=== PATIENT | male | born 1960 | race African-American/Black ===

== ENCOUNTER → 2017-01-15 | Outpatient (CLI) | payer OTHER ==
[~2017-01-15] MED LIST: ASPI81TA11 PO; BLOOD GLUCOSE T1 TES; DEPA500T3 PO; DILA30CA PO; GLUC10TA3 PO; LEVE500 PO; LEVEMIR SQ; PHEN50CH4 CHEW; PRAV40TA PO
[2017-01-15 16:08] LABS: ALKALINE PHOSPHATASE 96 U/L (45-117); ALT (GPT) 20 U/L (12-78); ANION GAP 7 MEQ/L (5-15); AST (GOT) 10 U/L (15-37); BICARBONATE 26.7 MEQ/L (21.0-32.0); BLOOD UREA NITROGEN 14 MG/DL (7-18); CHLORIDE 103 MEQ/L (98-107); GLOMERULAR FILTRATION RATE 92 ML/MIN (>89); GLUCOSE,FASTING 352 MG/DL (74-99); HDL CHOLESTEROL 52.1 MG/DL (40.0-60.0); LDL CHOLESTEROL 111 MG/DL (0-99); SODIUM (NA) 137 MEQ/L (136-145); TOTAL BILIRUBIN ADULT 0.2 MG/DL (0.2-1.0)
[2017-01-15 22:25] LABS: HEMOGLOBIN A1a 1.2 %; HEMOGLOBIN A1b 1.2 %; HEMOGLOBIN Ao 73.3 %; HEMOGLOBIN F 2.1 %; HEMOGLOBIN LA1C 3.9 %; HEMOGLOBIN P3 5.5 %
== END ==
LOC: CLAB 15:10
PROVIDERS: ATTEND Family Medicine
DX: E11.9 Type 2 diabetes mellitus without complications (principal); R56.9 Unspecified convulsions; Z86.73 Personal history of transient ischemic attack (TIA), and cerebral infarction without residual deficits; Z72.0 Tobacco use
CPT/HCPCS: 36415; 80053; 80061; 83036; 84443

== ENCOUNTER 2017-10-23 16:27 | Emergency (ER) | payer SELFPAY ==
[~2017-10-23] VITALS: Ht 170.2 cm; Wt 60.0 kg
[~2017-10-23 16:27] MED LIST changes: -ASPI81TA11 PO; +ASPI81TA23 PO; -PHEN50CH4 CHEW
[2017-10-23 16:30] VITALS: BP 123/80; PULSE 70; RESP 18; TEMP 98.2; O2SAT 99
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
[2017-10-23] MEDS ORDERED: CEPHALEXIN MONOHYDRATE 500 MG CAP PO ONE (19:30)
[2017-10-23] MEDS ORDERED: TETANUS/DIPHTHERIA TOXOID ADULT 0.5 ML VIAL IM ONE (19:30)
[2017-10-23] MEDS ORDERED: LIDOCAINE HCL 1% 30 ML VIAL INFIL ONE (19:30)
[2017-10-23] MEDS ORDERED: LIDOCAINE HCL 1% PF 30 ML VIAL INFIL ONE (19:45)
[2017-10-23] MEDS ORDERED: BACT800T5 PO (20:23)
[2017-10-23] MEDS ORDERED: BACIOIN6 EACH EYE (20:23)
--- NOTE | 2017-10-23 20:53 | RADRPT ---
EXAM DATE/TIME: 10/23/2017 19:39 [facility] COMPARISON: No previous studies available for comparison. INDICATIONS : Laceration to mid tibia. MEDICAL HISTORY : None. SURGICAL HISTORY : None. ENCOUNTER: Initial ACUITY: 1 day PAIN SCORE: 7/10 LOCATION: Right lateral FINDINGS: Two view examination of the right tibia demonstrates no evidence of fracture or dislocation. Bony mi neralization is normal. The soft tissue structures are intact. CONCLUSION: No acute disease. Yonas Darling MD on October 23, 2017 at 20:49 Board Certified Radiologist. This report was verified electronically.
[2017-10-24] MEDS ORDERED: BACI500O9 TOPICAL (11:53)
--- NOTE | 2017-10-24 11:53 | PD ---
Data Data Last Documented VS Vital Signs Date Time Temp Pulse Resp B/P (MAP) Pulse Ox O2 Delivery O2 Flow Rate FiO2 10/23/17 20:21 10/23/17 16:30 98.2 70 18 99 Room Air Orders Orders Tetanus/Diphtheria Tox Adult (Tetanus/Di (10/23/17 19:30) Cephalexin (Keflex) (10/23/17 19:30) Lidocaine 1% Inj (Xylocaine 1% Inj) (10/23/17 19:30) Tibia/Fibula (Ap/Lat) (10/23/17 ) Lidocaine Pf 1% Inj (Xylocaine-Mpf 1% In (10/23/17 19:45) Ed Discharge Order (10/23/17 20:24) MDM Supervised Visit with AYE: No Narrative Course Patient was accidentally given ophthalmic ointment instead of topical ointment. New prescription was written. Diagnosis Primary Impression: Leg laceration Referrals: Primary Care Physician Patient Instructions: General Instructions, Sulfamethoxazole/Trimethoprim (By mouth) Departure Forms: Tests/Procedures Additional Instruction: Please return to the ER if condition worsens or any other new concerns. Otherwise follow up with your primary care next couple days. Keep the wound clean and dry and take the antibiotic prescription as per the direction. Apply the ointment twice a day until the justa come out. The justa need to come out in 10 days. He can come to the emergency room or go to her primary care. Come sooner if the wound starts looking infected. Keep a good control on her diabetes since uncontrolled diabetes delays wound healing and causes infection. Scripts Bacitracin Topical (Bacitracin Topical) 500 Unit/Gm Oint 1 APPLIC TOPICAL BID for Infection, #30 GM 0 Refills Prov: Afshan Thurston MD 10/24/17 Bacitracin Opth Oint (Bacitracin Opth Oint) 500 Unit/Gm Oint 1 APPLIC EACH EYE BID for Infection, #1 TUBE 0 Refills Prov: Iris Barboza MD 10/23/17 Sulfamethoxazole-Trimethoprim (Bactrim DS) 800-160 Mg Tab 1 TAB PO BID for Infection for 10 Days, #20 TAB 0 Refills Prov: Iris Barboza MD 10/23/17 Disposition: 01 DISCHARGE HOME Condition: Stable Afshan Thurston MD Oct 24, 2017 11:53
== END 2017-10-23 20:35 | disposition home or self-care (01) ==
LOC: NEPD 16:27
DX: S81.811A Laceration without foreign body, right lower leg, initial encounter (principal); W29.8XXA Contact with other powered hand tools and household machinery, initial encounter; Y92.009 Unspecified place in unspecified non-institutional (private) residence as the place of occurrence of the external cause; E11.9 Type 2 diabetes mellitus without complications; Z86.73 Personal history of transient ischemic attack (TIA), and cerebral infarction without residual deficits; Z23 Encounter for immunization; Z79.4 Long term (current) use of insulin; Z79.84 Long term (current) use of oral hypoglycemic drugs; Z79.82 Long term (current) use of aspirin
CPT/HCPCS: 12002; 73590; 90471; 90714

== ENCOUNTER 2018-01-23 10:31 | Observation (INO) | payer SELFPAY ==
[~2018-01-23] VITALS: Ht 170.2 cm; Wt 60.0 kg
[~2018-01-23 10:31] MED LIST changes: +BACI500O9 TOPICAL; +BACIOIN6 EACH EYE; +BACT800T5 PO
[2018-01-23 10:35] VITALS: BP 104/67; PULSE 80; RESP 18; TEMP 98.2; O2SAT 98
[2018-01-23] MEDS ORDERED: SODIUM CHLOR 0.9% 1000 ML INJ 1,000 ML IV ONE ×2 (10:46→11:16)
[2018-01-23 10:51] VITALS: O2SAT 94
[2018-01-23] MEDS ORDERED: SODIUM CHLORIDE 0.9% FLUSH 10 ML FLUSH IVF PRN (11:00)
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
[2018-01-23 11:36] LABS: AUTOMATED NEUTROPHIL # 7.2 TH/MM3 (1.8-7.7); BASOPHIL % 0.5 % (0.0-2.0); EOSINOPHIL # 0.1 TH/MM3 (0-0.4); EOSINOPHIL % 1.4 % (0.0-4.0); HEMATOCRIT 45.4 % (39.0-51.0); HEMOGLOBIN 15.4 GM/DL (13.0-17.0); LYMPH % 14.5 % (9.0-44.0); LYMPHOCYTE # 1.4 TH/MM3 (1.0-4.8); MEAN CELL VOLUME 91.4 FL (80.0-100.0); MEAN CORPUSCULAR HGB CONC 33.9 % (32.0-36.0); MEAN PLATELET VOLUME 8.4 FL (7.0-11.0); MONOCYTE # 0.9 TH/MM3 (0-0.9); NEUT % 74.6 % (16.0-70.0); PLATELET COUNT 279 TH/MM3 (150-450); RED BLOOD COUNT 4.97 MIL/MM3 (4.50-5.90); RED CELL DISTRIBUTION WIDTH 13.8 % (11.6-17.2); WHITE BLOOD COUNT 9.7 TH/MM3 (4.0-11.0)
[2018-01-23 11:47] LABS: ALBUMIN 3.5 GM/DL (3.4-5.0); ALKALINE PHOSPHATASE 210 U/L (45-117); ALT (GPT) 31 U/L (12-78); AST (GOT) 18 U/L (15-37); BICARBONATE 23.1 MEQ/L (21.0-32.0); BLOOD UREA NITROGEN 19 MG/DL (7-18); CALCIUM 8.7 MG/DL (8.5-10.1); CHLORIDE 95 MEQ/L (98-107); CREATININE 1.05 MG/DL (0.60-1.30); GLOMERULAR FILTRATION RATE 88 ML/MIN (>89); MAGNESIUM 2.1 MG/DL (1.5-2.5); PHOSPHORUS 3.6 MG/DL (2.5-4.9); SODIUM (NA) 132 MEQ/L (136-145); TOTAL BILIRUBIN ADULT 0.4 MG/DL (0.2-1.0); TOTAL PROTEIN 7.5 GM/DL (6.4-8.2); TROPONIN I LESS THAN 0.02 NG/ML (0.02-0.05)
[2018-01-23 11:51] LABS: GLUCOSE,RANDOM 556 MG/DL (74-106)
[2018-01-23 12:05] LABS: BILIRUBIN, URINE NEG (NEG); BLOOD, URINE NEG (NEG); GLUCOSE,URINE 1000 mg/dL (NEG); KETONE, URINE 40 mg/dL (NEG); MUCUS URINE FEW /lpf (OCC); NITRITE,URINE NEG (NEG); URINE COLOR COLORLESS (YELLW/STRAW); URINE LEUKOCYTE ESTERASE NEG (NEG)
--- NOTE | 2018-01-23 12:30 | RADRPT ---
EXAM DATE/TIME: 01/23/2018 11:49 [facility] COMPARISON: CHEST SINGLE AP, August 03, 2016, 23:29. INDICATIONS : Shortness of breath. MEDICAL HISTORY : Diabetes. SURGICAL HISTORY : None. ENCOUNTER: Initial ACUITY: 1 day PAIN SCORE: 0/10 LOCATION: Bilateral chest FINDINGS: Portable AP view of the chest demonstrates a normal-sized cardiac silhouette. No effusion, consolidat ion, or pneumothorax is visualized. The bones and soft tissues demonstrate no acute abnormality. Lung s are mildly underinflated. CONCLUSION: No acute cardiopulmonary abnormality is identified. Shreyas Hernandez MD on January 23, 2018 at 12:27 Board Certified Radiologist. This report was verified electronically.
[2018-01-23] MEDS ORDERED: ASPIRIN 325 MG TAB PO ONE (13:00)
--- NOTE | 2018-01-23 13:11 | HHI.HP ---
HPI Service Family Medicine Primary Care Physician No Primary Care Physician Admission Diagnosis chest pain, diabetes Diagnoses: International Travel<30 Days: No Contact w/Intl Traveler<30days: No Known Affected Area: No History of Present Illness Patient is a poor historian. Patient is a 57-year-old male with past medical history of diabetes, CVA, and seizures presented to the ED after he was found to have severely elevated blood sugars at home. Cousin was at bedside and provided some of the history. Patient blood sugar was checked today and found to be severely elevated in the 600s. He was advised by his cousin to come into the emergency room for further evaluation. Patient states he has been without any of his medications for the past 6 months. He states he cannot afford the medications. He does not check his blood glucose at home. Denies any active chest pain. States that he has had intermittent left sided nonradiating chest pain throughout the past week. He also reports that he has "not felt well and sluggish" for the past couple of weeks. Patient said he does not have health insurance. He used to see at a program at [facility] but since program closely has not been able to establish care with any PCP. In the ED patient was found to have blood sugar of 556. He received 4 liter bolus of normal saline. Patient also found to have mild ST elevations on EKG and cardiology was consulted. (Alex Bravo MD, R1) Review of Systems Constitutional: COMPLAINS OF: Change in appetite, DENIES: Fever, Chills, Dizziness Endocrine: COMPLAINS OF: Polydipsia, Polyuria Eyes: COMPLAINS OF: Blurred vision, DENIES: Vision loss Ears, nose, mouth, throat: DENIES: Throat pain, Ear Pain Respiratory: COMPLAINS OF: Cough, Shortness of breath Cardiovascular: COMPLAINS OF: Orthopnea, DENIES: Chest pain, Palpitations, Lower Extremity Edema Gastrointestinal: COMPLAINS OF: Constipation (last BM yesterday), DENIES: Abdominal pain, Diarrhea, Nausea, Vomiting Genitourinary: COMPLAINS OF: Urinary frequency, DENIES: Hematuria, Dysuria Musculoskeletal: COMPLAINS OF: Back pain (chronic), DENIES: Neck pain Integumentary: DENIES: Rash Hematologic/lymphatic: DENIES: Bruising Neurologic: COMPLAINS OF: Paresthesias (feet BL), DENIES: Headache, Localized weakness Psychiatric: DENIES: Confusion (Alex Bravo MD, R1) Past Family Social History Past Medical History Diabetes History of CVANovember 2015 hospital admissionright lacunar infarct Hypertension? Hyperlipidemia? Cocaine abuse arthritis seizure, 2015. Past Surgical History Right knee surgery Reported Medications Has not taken any medications for the past 6 months Reported Meds & Active Scripts Active Dilantin (Phenytoin Extended) 30 Mg Cap 50 Mg PO TID Glucotrol (Glipizide) 10 Mg Tab 10 Mg PO BIDAC Take 30 minutes before a meal Keppra (Levetiracetam) 500 Mg Tab 500 Mg PO Q12HR Depakote ER (Divalproex Sodium) 500 Mg Woody 500 Mg PO BID Levemir Inj (Insulin Detemir) 1,000 unit/ 10 ML Vial 20 Units SQ BID 30 Days Do not mix with any other Insulin. Pravachol (Pravastatin) 40 Mg Tab 40 Mg PO DAILY Blood Glucose Test Strips 1 Oneyda Oneyda 1 Ea .ROUTE DIRECTED contour next Aspirin EC (Aspirin) 81 Mg Tabdr 162 Mg PO DAILY (Alex Bravo MD, R1) Allergies: Coded Allergies: No Known Allergies (Unverified Allergy, Unknown, 01/23/18) Family History Patient not sure of family hx Mother- Dementia Social History Lives with mother in house who he provides care for because she has dementia. Patient does not work. He is in the process of obtaining disability due to DM and arthritis. smokin-2 cig whenever he can, since 10 yo alcohol quit 5-6yrs ago illicit: cocaine, last use 1 wk ago Ambulates independently Cousin helps with cooking and cleaning in the home. (Alex Bravo MD, R1) Physical Exam Vital Signs Vital Signs Date Time Temp Pulse Resp B/P (MAP) Pulse Ox O2 Delivery O2 Flow Rate FiO2 01/23/18 10:51 94 Room Air 01/23/18 10:35 98.2 80 18 104/67 (79) 98 Physical Exam GENERAL: Thin male laying in bed in no apparent distress. SKIN: No rashes, ecchymoses or lesions. dry, cool and dry. HEAD: Atraumatic. Normocephalic. EYES: Pupils equal round and reactive. Extraocular motions intact. No scleral icterus. No injection or drainage. ENT: Nose without bleeding, purulent drainage or septal hematoma. Throat without erythema, tonsillar hypertrophy or exudate. Uvula midline. Airway patent. NECK: Trachea midline. No JVD or lymphadenopathy. Supple, nontender, no meningeal signs. CARDIOVASCULAR: Normal S1 or S2. Regular rate and rhythm without murmurs, gallops, or rubs. RESPIRATORY: Clear to auscultation. Breath sounds equal bilaterally. No wheezes , rales, or rhonchi. GASTROINTESTINAL: Abdomen soft, non-tender, nondistended. No hepato-splenomegaly , or palpable masses. No guarding. MUSCULOSKELETAL: Extremities without clubbing, cyanosis, or edema. No joint tenderness, effusion, or edema noted. No calf tenderness. +2PD pulses BL. Feet examined: callus feet, dry, long toe nails, no ulcers or cuts noted. NEUROLOGICAL: Awake and alert. Cranial nerves II through XII intact. Motor and sensory grossly within normal limits. Five out of 5 muscle strength in all muscle groups. Laboratory Laboratory Tests Test 01/23/18 10:55 01/23/18 11:37 White Blood Count 9.7 Red Blood Count 4.97 Hemoglobin 15.4 Hematocrit 45.4 Mean Corpuscular Volume 91.4 Mean Corpuscular Hemoglobin 31.0 Mean Corpuscular Hemoglobin Concent 33.9 Red Cell Distribution Width 13.8 Platelet Count 279 Mean Platelet Volume 8.4 Neutrophils (%) (Auto) 74.6 Lymphocytes (%) (Auto) 14.5 Monocytes (%) (Auto) 9.0 Eosinophils (%) (Auto) 1.4 Basophils (%) (Auto) 0.5 Neutrophils # (Auto) 7.2 Lymphocytes # (Auto) 1.4 Monocytes # (Auto) 0.9 Eosinophils # (Auto) 0.1 Basophils # (Auto) 0.0 CBC Comment DIFF FINAL Differential Comment Blood Urea Nitrogen 19 Creatinine 1.05 Random Glucose 556 Total Protein 7.5 Albumin 3.5 Calcium Level 8.7 Phosphorus Level 3.6 Magnesium Level 2.1 Alkaline Phosphatase 210 Aspartate Amino Transf (AST/SGOT) 18 Alanine Aminotransferase (ALT/SGPT) 31 Total Bilirubin 0.4 Sodium Level 132 Potassium Level 4.7 Chloride Level 95 Carbon Dioxide Level 23.1 Anion Gap 14 Estimat Glomerular Filtration Rate 88 Total Creatine Kinase 89 Troponin I LESS THAN 0.02 B-Hydroxybutyrate 3.25 Urine Color COLORLESS Urine Turbidity CLEAR Urine pH 5.0 Urine Specific [place] 1.031 Urine Protein NEG Urine Glucose (UA) 1000 Urine Ketones 40 Urine Occult Blood NEG Urine Nitrite NEG Urine Bilirubin NEG Urine Urobilinogen LESS THAN 2.0 Urine Leukocyte Esterase NEG Urine WBC LESS THAN 1 Urine Mucus FEW Microscopic Urinalysis Comment CULT NOT INDICATED Urine Opiates Screen NEG Urine Barbiturates Screen NEG Urine Amphetamines Screen NEG Urine Benzodiazepines Screen NEG Urine Cocaine Screen NEG Urine Cannabinoids Screen NEG (Alex Bravo MD, R1) Result Diagram: 01/23/18 1055 01/23/18 1055 Imaging Last Impressions Chest X-Ray 01/23/18 0000 Signed Impressions: Service Date/Time: Tuesday, January 23, 2018 11:49 - CONCLUSION: No acute cardiopulmonary abnormality is identified. Shreyas Hernandez MD (Alex Bravo MD, R1) Caprini VTE Risk Assessment Caprini VTE Risk Assessment: Mod/High Risk (score >= 2) Caprini Risk Assessment Model Point Value = 1 Point Value = 2 Point Value = 3 Point Value = 5 Age 41-60 Minor surgery BMI > 25 kg/m2 Swollen legs Varicose veins or History of unexplained or recurrent spontaneous Oral contraceptives or hormone replacement Sepsis (< 1 month) Serious lung disease, including pneumonia (< 1 month) Abnormal pulmonary function Acute myocardial infarction Congestive heart failure (< 1 month) History of inflammatory bowel disease Medical patient at bed rest Age 61-74 Arthroscopic surgery Major open surgery (> 45 min) Laparoscopic surgery (> 45 min) Malignancy Confined to bed (> 72 hours) Immobilizing plaster cast Central venous access Age >= 75 History of VTE Family history of VTE Factor V Leiden Prothrombin [id number] Lupus anticoagulant Anticardiolipin antibodies Elevated serum homocysteine Heparin-induced thrombocytopenia Other congenital or acquired thrombophilia Stroke (< 1 month) Elective arthroplasty Hip, pelvis, or leg fracture Acute spinal cord injury (< 1 month) Prophylaxis Regimen Total Risk Factor Score Risk Level Prophylaxis Regimen 0-1 Low Early ambulation 2 Moderate Order ONE of the following: *Sequential Compression Device (SCD) *Heparin 5000 units SQ BID 3-4 Higher Order ONE of the following medications: *Heparin 5000 units SQ TID *Enoxaparin/Lovenox 40 mg SQ daily (WT < 150 kg, CrCl > 30 mL/min) *Enoxaparin/Lovenox 30 mg SQ daily (WT < 150 kg, CrCl > 10-29 mL/min) *Enoxaparin/Lovenox 30 mg SQ BID (WT < 150 kg, CrCl > 30 mL/min) AND/OR *Sequential Compression Device (SCD) 5 or more Highest Order ONE of the following medications: *Heparin 5000 units SQ TID (Preferred with Epidurals) *Enoxaparin/Lovenox 40 mg SQ daily (WT < 150 kg, CrCl > 30 mL/min) *Enoxaparin/Lovenox 30 mg SQ daily (WT < 150 kg, CrCl > 10-29 mL/min) *Enoxaparin/Lovenox 30 mg SQ BID (WT < 150 kg, CrCl > 30 mL/min) AND *Sequential Compression Device (SCD) (Alex Bravo MD, R1) Assessment and Plan Assessment and Plan Patient is a 57-year-old male with past medical history of diabetes, CVA, and seizures presenting with: Code Status Full code Discussed Condition With [facility] Dr. Osorio (Alex Bravo MD, R1) Attending Attestation THIS CASE WAS DISCUSSED WITH THE RESIDENT PHYSICIAN. I HAVE REVIEWED THE RECORD AND AGREE WITH THE ABOVE NOTE AND PLAN OF CARE WAS DISCUSSED. I HAVE AUTHORIZED THE ORDER FOR PLACEMENT IN OUT-PATIENT OBSERVATION STATUS. (Nahomy Arana MD) Problem List: (1) Hyperglycemia ICD Codes: R73.9 - Hyperglycemia, unspecified Status: Acute Plan: Vital signs stable. No signs of infection identified. Normal chest x-ray No leukocytosis UA: Elevated glucose of 1000 and ketones 40 Hyperglycemia secondary to noncompliance with diabetic medications. See plan below (2) Type 2 diabetes mellitus ICD Codes: E11.9 - Type 2 diabetes mellitus without complications Status: Chronic Plan: Patient has been off diabetic medications at least for the past 6 months Reported blood sugar at home found to be 600 today In the ED patient was found to have a blood sugar of 554, with anion gap of 14, and elevated beta hydroxybutyrate of 3.25. Levemir 10 twice daily Low-dose SSI Accu-Cheks Continue monitor blood sugars and adjust insulin as needed c/w IVF Consult: state editor case management Follow-up: A.m. labs Hemoglobin A1c (3) Atypical chest pain ICD Codes: R07.89 - Other chest pain Status: Acute Plan: Patient with history of intermittent/vague left sided nonradiating chest pain for the past week. Evaluate for ACS rule out, chest pain may be atypical due to history of diabetes. No active chest pain Vital signs stable Troponin 1 negative CXR: No acute cardiopulmonary disease Follow-up serial EKG and troponins Placed on telemetry Consult cardiology appreciate recommendations Initial EKG: sinus rhythm with J point elevation, but no ischemic-appearing ST changes. Continue to monitor Stress test tomorrow (4) Non-compliance ICD Codes: Z91.19 - Patient's noncompliance with other medical treatment and regimen Status: Chronic Plan: See diabetes plan above (5) History of CVA (cerebrovascular accident) ICD Codes: Z86.73 - Personal history of transient ischemic attack (TIA), and cerebral infarction without residual deficits Status: Chronic Plan: No focal neurological deficits noted on exam. Continue with aspirin and statin (6) Nutrition, metabolism, and development symptoms ICD Codes: R63.8 - Other symptoms and signs concerning food and fluid intake Status: Acute Plan: Fluids: 100 mls/hr Electrolytes: Replete as needed, continue to monitor Nutrition: diabetic diet DVT prophylaxis: Heparin 3 times daily (7) Seizure ICD Codes: R56.9 - Seizure Status: Chronic Plan: Patient is poor historian. Reports one time history of seizures in 2016 when he had his stroke. However denies any seizures since that time or ever following with a neurologist. Patient has been off seizure medication for greater than 6 months Consider resuming seizure medications. (Alex Bravo MD, R1) Problem Qualifiers (1) Type 2 diabetes mellitus: Qualified Codes: E11.9 - Type 2 diabetes mellitus without complications; Z79.4 - USP (current) use of insulin Alex Bravo MD, R1 January 23, 2018 13:11 Nahomy Arana MD January 24, 2018 13:38
[2018-01-23] MEDS ORDERED: MAGNESIUM HYDROXIDE SUSP 30 ML CUP PO PRN (14:00)
[2018-01-23] MEDS ORDERED: NALOXONE HCL 0.4 MG/ML AMP IV PUSH PRN (14:00)
[2018-01-23] MEDS ORDERED: GLUCAGON 1 MG/ML VIAL OTHER PRN (14:00)
[2018-01-23] MEDS ORDERED: DEXTROSE 50% IN WATER 50 ML VIAL(D50) IV PUSH PRN (14:00)
[2018-01-23] MEDS ORDERED: SODIUM CHLORIDE 0.9% FLUSH 10 ML FLUSH IV FLUSH PRN (14:00)
[2018-01-23] MEDS ORDERED: ACETAMINOPHEN 325 MG TAB PO PRN (14:00)
[2018-01-23] MEDS ORDERED: LACTULOSE SYRUP 20 GM/30 ML CUP PO PRN (14:00)
[2018-01-23] MEDS: SODIUM CHLORIDE 0.9% FLUSH 10 ML FLUSH IV FLUSH SCH ×2 (14:00→20:54)
[2018-01-23] MEDS ORDERED: SENNOSIDES 8.6 MG TAB PO PRN (14:00)
[2018-01-23] MEDS ORDERED: BISACODYL 10 MG SUPP RECTAL PRN (14:00)
[2018-01-23] MEDS: SODIUM CHLOR 0.9% 1000 ML INJ 1,000 ML IV SCH (14:35)
[2018-01-23] MEDS: HEPARIN SODIUM - SQ 10,000 UNITS/ML VIAL SQ SCH ×2 (14:36→22:29)
--- NOTE | 2018-01-23 14:57 | MB ---
cc: Patrick Brenner MD DATE: 01/23/2018 REASON FOR CONSULTATION: Atypical chest pain. HISTORY OF PRESENT ILLNESS: The patient is a pleasant 57-year-old gentleman with a history of poorly controlled diabetes and noncompliance, who was apparently off his insulin and all medications for multiple months due to financial reasons. He was found to have a glucose level of 500. He did complain of some chest discomfort about a week ago, which he has very vague at describing. He says it is mild, comes and goes and generally points to his epigastric region, but again he is pretty vague. He says he has had no chest pain today or in the last couple of days. PAST MEDICAL HISTORY: 1. Noncompliance. 2. Diabetes. 3. Possible hyperlipidemia. 4. Hypertension. 5. CVA. 6. Cocaine abuse. 7. Seizure. CURRENT MEDICATIONS: 1. Aspirin 325 mg daily. 2. Lipitor 20 mg at bedtime. ALLERGIES: NO KNOWN DRUG ALLERGIES. PHYSICAL EXAMINATION: VITAL SIGNS: Afebrile, pulse 80, respiratory rate 18, blood pressure 104/67, satting 94 on room air. GENERAL: Pleasant, thin, gentleman in no distress. NECK: No JVD. LUNGS: Clear to auscultation bilaterally. HEART: Regular rate and rhythm. No murmurs appreciated. ABDOMEN: Benign. EXTREMITIES: No edema. LABORATORY DATA: White count 9.7, hematocrit 45.4, platelets 279. Sodium 132, potassium 4.7, chloride 95, bicarbonate 23.1, BUN 19, creatinine 1.05, glucose is 556. Troponin is negative x 1. Toxicology screen is negative. UA does show some ketones as well as a high blood glucose. EKG shows sinus rhythm with J point elevation, but no ischemic-appearing ST changes. ASSESSMENT AND PLAN: Chest pain. The patient's chest pain is quite vague, though he certainly has risk factors. I will complete his rule out and have him undergo a nuclear stress test tomorrow. If the stress test is nonischemic, he could likely be discharged from a cardiac standpoint thereafter, presuming his metabolic issues have stabilized. Thank you again for the opportunity to participate in this patient's care. MD BHANU Skinner/BERYL , 02:45 PM , 02:55 PM
[2018-01-23 15:24] VITALS: BP 109/71; PULSE 70; RESP 16; TEMP 98; O2SAT 98
[2018-01-23] MEDS: INSULIN DETEMIR 100 UNITS/ML VIAL SQ SCH (16:07)
[2018-01-23] MEDS: ATORVASTATIN 20 MG TAB PO SCH (16:09)
[2018-01-23] MEDS: INSULIN ASPART SUPPLEMENTAL SCALE SQ SCH ×2 (18:31→20:53)
[2018-01-23 19:10] VITALS: BP 95/67; PULSE 80; RESP 18; TEMP 98.2; O2SAT 97
[2018-01-23] MEDS: DOCUSATE SODIUM 50 MG/SENNA 8.6 MG TAB PO SCH (20:54)
[2018-01-24 00:25] VITALS: BP 100/68; PULSE 74; RESP 18; TEMP 98.2; O2SAT 95
[2018-01-24 00:27] LABS: CHOLESTEROL 185 MG/DL (120-200); TRIGLYCERIDES 82 MG/DL (42-150)
[2018-01-24 00:31] LABS: CHOLESTEROL/ HDL RATIO 4.12 RATIO; HDL CHOLESTEROL 44.8 MG/DL (40.0-60.0); LDL CHOLESTEROL 124 MG/DL (0-99); TROPONIN I LESS THAN 0.02 NG/ML (0.02-0.05)
[2018-01-24] MEDS: INSULIN DETEMIR 100 UNITS/ML VIAL SQ SCH (03:34)
[2018-01-24] MEDS: SODIUM CHLOR 0.9% 1000 ML INJ 1,000 ML IV SCH ×2 (03:34→10:00)
[2018-01-24 03:41] VITALS: BP 98/63; PULSE 63; RESP 18; TEMP 98.2; O2SAT 97
[2018-01-24] MEDS: HEPARIN SODIUM - SQ 10,000 UNITS/ML VIAL SQ SCH ×2 (06:25→14:00)
[2018-01-24 07:08] VITALS: BP 104/63; PULSE 64; RESP 18; TEMP 97.7; O2SAT 97
[2018-01-24] MEDS: INSULIN ASPART SUPPLEMENTAL SCALE SQ SCH ×2 (08:00→12:00)
[2018-01-24] MEDS ORDERED: ASPIRIN 325 MG TAB PO SCH (09:00)
[2018-01-24] MEDS: SODIUM CHLORIDE 0.9% FLUSH 10 ML FLUSH IV FLUSH SCH (09:00)
[2018-01-24] MEDS ORDERED: REGADENOSON INJ 0.4 MG/5 ML SYR ONE (09:52)
--- NOTE | 2018-01-24 10:59 | PD.CARD.PN ---
Subjective Subjective Remarks Pt feels well, no complaints. Objective Medications Current Medications Medications (Trade) Dose Ordered Sig/Godfrey Route Start Time Stop Time Status Last Admin Sodium Chloride 1,000 ml @ 100 mls/hr Q10H IV 01/23/18 14:00 01/24/18 03:34 (NS Flush) 2 ml UNSCH PRN IV FLUSH 01/23/18 14:00 (NS Flush) 2 ml BID IV FLUSH 01/23/18 14:00 (Tylenol) 650 mg Q4H PRN PO 01/23/18 14:00 (Heparin Inj) 5,000 units Q8H SQ 01/23/18 14:00 01/24/18 06:25 (Narcan Inj) 0.4 mg UNSCH PRN IV PUSH 01/23/18 14:00 (Bridget-Colace) 1 tab BID PO 01/23/18 21:00 (Milk Of Magnesia Liq) 30 ml Q12H PRN PO 01/23/18 14:00 (Senokot) 17.2 mg Q12H PRN PO 01/23/18 14:00 (Dulcolax Supp) 10 mg DAILY PRN RECTAL 01/23/18 14:00 (Lactulose Liq) 30 ml DAILY PRN PO 01/23/18 14:00 (D50w (Vial) Inj) 50 ml UNSCH PRN IV PUSH 01/23/18 14:00 (Glucagon Inj) 1 mg UNSCH PRN OTHER 01/23/18 14:00 (NovoLOG SUPPLEMENTAL SCALE) 1 ACHS SLIDING SCALE SQ 01/23/18 17:00 01/23/18 20:53 (Aspirin) 325 mg DAILY PO 01/24/18 09:00 (Lipitor) 20 mg DAILY PO 01/23/18 15:00 01/23/18 16:09 (Levemir Inj) 15 units Q12H SQ 01/24/18 15:00 Vital Signs / I&O Vital Signs Date Time Temp Pulse Resp B/P (MAP) Pulse Ox O2 Delivery O2 Flow Rate FiO2 01/24/18 07:08 97.7 64 18 104/63 (77) 97 01/24/18 03:41 98.2 63 18 98/63 (75) 97 01/24/18 00:25 98.2 74 18 100/68 (79) 95 01/23/18 19:10 98.2 80 18 95/67 (76) 97 01/23/18 15:24 98.0 70 16 109/71 (84) 98 I/O 01/23/18 01/23/18 01/23/18 01/24/18 01/24/18 01/24/18 07:00 15:00 23:00 07:00 15:00 23:00 Intake Total 2000 ml Balance 2000 ml Intake IV Total 2000 ml # Voids 1 Physical Exam GENERAL: This is a well-nourished, well-developed patient, in no apparent distress. CARDIOVASCULAR: Regular rate and rhythm without murmurs, gallops, or rubs. RESPIRATORY: Clear to auscultation. Breath sounds equal bilaterally. No wheezes , rales, or rhonchi. GASTROINTESTINAL: Abdomen soft, non-tender, nondistended. Normal active bowel sounds MUSCULOSKELETAL: Extremities without clubbing, cyanosis, or edema. NEURO: Alert & Oriented x4 to person, place, time, situation. Moves all ext x4 Laboratory Laboratory Tests Test 01/23/18 11:37 01/23/18 17:07 01/23/18 23:45 Urine Color COLORLESS Urine Turbidity CLEAR Urine pH 5.0 Urine Specific [place] 1.031 Urine Protein NEG mg/dL Urine Glucose (UA) 1000 mg/dL Urine Ketones 40 mg/dL Urine Occult Blood NEG Urine Nitrite NEG Urine Bilirubin NEG Urine Urobilinogen LESS THAN 2.0 MG/DL Urine Leukocyte Esterase NEG Urine WBC LESS THAN 1 /hpf Urine Mucus FEW /lpf Microscopic Urinalysis Comment CULT NOT INDICATED Urine Opiates Screen NEG Urine Barbiturates Screen NEG Urine Amphetamines Screen NEG Urine Benzodiazepines Screen NEG Urine Cocaine Screen NEG Urine Cannabinoids Screen NEG Troponin I LESS THAN 0.02 NG/ML LESS THAN 0.02 NG/ML Triglycerides Level 82 MG/DL Cholesterol Level 185 MG/DL LDL Cholesterol 124 MG/DL HDL Cholesterol 44.8 MG/DL Cholesterol/HDL Ratio 4.12 RATIO Imaging Last Impressions Chest X-Ray 01/23/18 0000 Signed Impressions: Service Date/Time: Tuesday, January 23, 2018 11:49 - CONCLUSION: No acute cardiopulmonary abnormality is identified. Shreyas Hernandez MD Assessment and Plan Problem List: (1) Atypical chest pain ICD Codes: R07.89 - Other chest pain Status: Acute Plan: Stress test results pending; sx vague and atypical Assessment and Plan If no ischemia on nuc stress will sign off, pls call with questions. Patrick Brenner MD January 24, 2018 10:59
[2018-01-24] MEDS ORDERED: METF500T PO (11:04)
[2018-01-24] MEDS ORDERED: ASPI81TA23 PO (11:04)
--- NOTE | 2018-01-24 11:06 | HHI.DCPOC ---
Discharge Care Plan Diagnosis: (1) Diabetes type 2, uncontrolled Goals to Promote Your Health * To prevent worsening of your condition and complications * To maintain your health at the optimal level Directions to Meet Your Goals Take your medications as prescribed Follow your dietary instruction Follow activity as directed Keep your appointments as scheduled Take your immunizations and boosters as scheduled If your symptoms worsen call your PCP, if no PCP go to Urgent Care Center or Emergency Room Smoking is Dangerous to Your Health. Avoid second hand smoke Call the 24-hour hour crisis hotline for domestic abuse at Merrill Bello MD R2 January 24, 2018 11:06
--- NOTE | 2018-01-24 11:22 | RADRPT ---
EXAM DATE/TIME: 01/24/2018 09:36 [facility] COMPARISON: MYOCARDIAL PERF PHARM SPECT, GATED W/EF, July 19, 2015, 11:04. INDICATIONS : Susbternal chest pain. Angina. DOSE: 25.4 mCi Tc99m Myoview at stress. 8.5 mCi Tc99m Myoview at rest. 0.4 mg Lexiscan STRESS SYMPTOMS: Asymptomatic. EJECTION FRACTION: 48% MEDICAL HISTORY : Hypertension. Diabetes mellitus type 2. SURGICAL HISTORY : Right knee. ENCOUNTER: Initial ACUITY: 2 days PAIN SCALE: 4/10 LOCATION: Substernal chest TECHNIQUE: The patient underwent pharmacologic stress with infusion of prescribed dose. Continuous ECG tracing was monitored during stress. Gated SPECT imaging was performed after stress and conventional SPECT i maging was performed at rest. The examination was performed on a SPECT/CT scanner, both attenuation and non-corrected datasets were reviewed. FINDINGS: DISTRIBUTION: The maximum perfused segment at stress is in the anterolateral wall. PERFUSION STUDY: The pattern of perfusion at stress is within normal limits. No fixed or reversible reason defect is i dentified. There is prominent subdiaphragmatic activity. GATED STUDY: There is intact wall motion and thickening without hypokinetic or dyskinetic segments. CONCLUSION: 1. Left ventricle perfusion is within normal limits. 2. Left ventricular ejection fraction is mildly decreased. RISK CATEGORY: Intermediate (1-3% Annual Mortality Rate) Shreyas Hernandez MD on January 24, 2018 at 11:16 Board Certified Radiologist. This report was verified electronically.
--- NOTE | 2018-01-24 12:20 | EKG ---
Date Performed: 01/23/2018 Time Performed: 16:58:01 PTAGE: 57 years EKG: Sinus rhythm LEFT ANTERIOR FASCICULAR BLOCK ABNORMAL ECG PREVIOUS TRACING : 01/23/2018 11.00 Since the previous tracing, no significant change noted DOCTOR: Patrick Brenner Interpretating Date/Time 01/24/2018 12:20:20
--- NOTE | 2018-01-24 12:20 | EKG ---
Date Performed: 01/23/2018 Time Performed: 23:18:43 PTAGE: 57 years EKG: Sinus rhythm LEFT ANTERIOR FASCICULAR BLOCK NONSPECIFIC ST & T-WAVE ABNORMALITY ABNORMAL ECG PREVIOUS TRACING : 01/23/2018 16.58 Since the previous tracing, no significant change noted DOCTOR: Patrick Brenner Interpretating Date/Time 01/24/2018 12:19:43
--- NOTE | 2018-01-24 12:23 | EKG ---
Date Performed: 01/23/2018 Time Performed: 11:00:18 PTAGE: 57 years EKG: Sinus rhythm LEFT ANTERIOR FASCICULAR BLOCK ST ELEVATION, PROBABLY EARLY REPOLARIZATION ABNORMAL ECG PREVIOUS TRACING : 08/18/2016 19.59 Since the previous tracing, no significant change noted DOCTOR: Patrick Brenner Interpretating Date/Time 01/24/2018 12:21:01
[2018-01-24 12:25] VITALS: BP 109/72; PULSE 62; RESP 16; TEMP 98; O2SAT 98
[2018-01-24] MEDS ORDERED: LEVEMIR SQ (12:29)
[2018-01-24] MEDS ORDERED: PRAV40TA PO (12:29)
[2018-01-24] MEDS: DOCUSATE SODIUM 50 MG/SENNA 8.6 MG TAB PO SCH (13:16)
[2018-01-24] MEDS: ATORVASTATIN 20 MG TAB PO SCH (13:16)
--- NOTE | 2018-01-24 13:59 | HHI.FPPN ---
Addendum to progress note ADDENDUM Reason for addendum: Additonal documentation Additional information See resident H/P from 01/23/2018 for further information regarding the history. Patient with non-compliance with all of his medications due to access to care for DM, Seizure d/o, HTN, Hyperlipidemia -- has been off meds for over 6 months. He was admitted for severe hyperglycemia and also for atypical chest pain. Patient denies chest pain overnight, no SOB, no orthopnea. No complaints except that he is hungry and wants to eat. Laboratory Tests Test 01/23/18 17:07 01/23/18 23:45 Troponin I LESS THAN 0.02 NG/ML LESS THAN 0.02 NG/ML Triglycerides Level 82 MG/DL Cholesterol Level 185 MG/DL LDL Cholesterol 124 MG/DL HDL Cholesterol 44.8 MG/DL Cholesterol/HDL Ratio 4.12 RATIO Vital Signs Date Time Temp Pulse Resp B/P (MAP) Pulse Ox O2 Delivery O2 Flow Rate FiO2 01/24/18 12:25 98.0 62 16 109/72 (84) 98 01/24/18 07:08 97.7 64 18 104/63 (77) 97 01/24/18 03:41 98.2 63 18 98/63 (75) 97 01/24/18 00:25 98.2 74 18 100/68 (79) 95 01/23/18 19:10 98.2 80 18 95/67 (76) 97 01/23/18 15:24 98.0 70 16 109/71 (84) 98 AP -- Chest pain was vague and atypical and nuclear stress is normal. Patient with recent cocaine usage as well. Continue his statin and ASA. No Bblocker or VISHNU due to low BP. Risk facotr modification as an outpatient. DM -- his accuchecks have improved. Will restart some oral metformin with the levimir as this is free and so patient should be able to access this. Case management to assist with getting patient medications at home. Will provide patient with information regarding free clinics in the area for PCP as well. Patient counselled on the importance of taking all medications as prescribed, following up with PCP. DC to home today Nahomy Arana MD January 24, 2018 13:59
[2018-01-24] MEDS ORDERED: INSULIN ASPART 1,000 UNITS/10 ML VIAL SQ ONE (14:45)
[2018-01-24] MEDS ORDERED: INSULIN DETEMIR 100 UNITS/ML VIAL SQ SCH (15:00)
[2018-01-25 07:34] LABS: HEMOGLOBIN A1C 19.4 % (4.3-6.0)
== END 2018-01-24 16:50 | disposition home or self-care (01) ==
LOC: NEPE 10:31 → NEDA 12:47 → NEPGCP 15:03
PROVIDERS: ADMIT Family Medicine; ATTEND Family Medicine
DX: E11.65 Type 2 diabetes mellitus with hyperglycemia (principal); R07.89 Other chest pain; Z86.73 Personal history of transient ischemic attack (TIA), and cerebral infarction without residual deficits; K21.9 Gastro-esophageal reflux disease without esophagitis; R51 Headache; F17.210 Nicotine dependence, cigarettes, uncomplicated; F14.10 Cocaine abuse, uncomplicated; Z79.899 Other long term (current) drug therapy; Z91.14 Patient's other noncompliance with medication regimen; Z79.4 Long term (current) use of insulin; R56.9 Unspecified convulsions; I10 Essential (primary) hypertension; I44.4 Left anterior fascicular block
CPT/HCPCS: 71045; 78452; 80053; 80061; 80307; 81001; 82010; 82550; 82948; 83036; 83735; 84100; 84484; 85025; 93005; 93017; 96360; 96361; 96372; 97163; 97166; 99285; A9502; G0378; G8987; G8988; G8989; J1644; J1815; J2785; J7030